=== PATIENT | male | born 1950 | race Hispanic/Latino ===

== ENCOUNTER 2022-05-27 23:49 | Emergency (ER) | payer BC, MEDICARE ==
[2022-05-28 00:40] LABS: BASOPHILS % (AUTO) 0.5 % (0.0-5.0); EOSINOPHILS % (AUTO) 0.8 % (0.0-8.0); HEMATOCRIT 26.9 % (42-54); LYMPHOCYTES % (AUTO) 8.3 % (21.0-51.0); MEAN CORPUSCULAR HEMOGLOBIN 28.1 pg (27.0-33.0); MEAN CORPUSCULAR HGB CONC 32.3 g/dL (32.0-36.0); MEAN CORPUSCULAR VOLUME 86.8 fL (79-99); MONOCYTES % (AUTO) 5.5 % (3.0-13.0); NEUTROPHILS % (AUTO) 84.3 % (40.0-77.0); PLATELET COUNT (AUTO) 357 K/uL (130-400); RED CELL DISTRIBUTION WIDTH 22.7 % (11.0-15.5); WHITE BLOOD COUNT (AUTO) 14.1 K/uL (4.8-10.8)
[2022-05-28 00:56] LABS: CREATININE 0.6 mg/dL (0.5-1.5); POTASSIUM 3.3 mmol/L (3.5-5.1)
[2022-05-28 01:01] LABS: ALBUMIN 1.5 g/dL (3.5-5.0)
[2022-05-28] MEDS ORDERED: CEFTRIAXONE 1G VIAL IVP ONE (02:00)
[2022-05-28] MEDS ORDERED: POTASSIUM BICARB/CIT AC 25 MEQ TABLET.EFF PO ONE (02:30)
[2022-05-28] MEDS ORDERED: FUROSEMIDE 40MG VIAL IV ONE (02:30)
[2022-05-28] MEDS ORDERED: DOXY-469 PEG (04:34)
[2022-05-28 06:03] VITALS: BP 148/73
== END 2022-05-28 04:50 | disposition home or self-care (01) ==
LOC: EDH 23:49
DX: T17.490A Other foreign object in trachea causing asphyxiation, initial encounter (principal); I50.9 Heart failure, unspecified; J40 Bronchitis, not specified as acute or chronic; E46 Unspecified protein-calorie malnutrition; E78.00 Pure hypercholesterolemia, unspecified; E11.9 Type 2 diabetes mellitus without complications; I48.91 Unspecified atrial fibrillation; Z79.899 Other long term (current) drug therapy; X58.XXXA Exposure to other specified factors, initial encounter; Y93.89 Activity, other specified; Y92.89 Other specified places as the place of occurrence of the external cause; Y99.8 Other external cause status
CPT/HCPCS: 36415; 71045; 80053; 83880; 84484; 85025; 93005; 96374; 96375